=== PATIENT | male | born 1990 | race Caucasian/White ===

== ENCOUNTER 2016-10-06 20:43 | Emergency (ER) | payer SELFPAY ==
[~2016-10-06] VITALS: Ht 172.7 cm; Wt 91.0 kg
[2016-10-07 00:01] VITALS: BP 126/70
[2016-10-07] MEDS ORDERED: LORAZEPAM 2MG/ML CPJ IM ONE (00:15)
[2016-10-07] MEDS ORDERED: ZIPRASIDONE MESYLATE 20MG/VIAL IM ONE (00:15)
[2016-10-07 01:02] LABS: *AMPHETAMINES SCREEN URINE NEGATIVE (NEGATIVE); *BARBITURATES SCREEN URINE NEGATIVE (NEGATIVE); *BENZODIAZEPINES SCREEN URINE PRESUMTIVE POSITIVE (NEGATIVE); *COCAINE SCREEN URINE NEGATIVE (NEGATIVE); CANNABINOID URINE SCREEN NEGATIVE (NEGATIVE); ECSTASY MDMA SCREEN URINE CONF.TEST INDICATED (NEGATIVE); METHADONE URINE SCREEN NEGATIVE (NEGATIVE); OPIATES URINE SCREEN NEGATIVE (NEGATIVE); PHENCYCLIDINE URINE SCREEN NEGATIVE (NEGATIVE)
== END 2016-10-07 01:14 | disposition home or self-care (01) ==
LOC: ER 23:04
DX: T50.991A Poisoning by other drugs, medicaments and biological substances, accidental (unintentional), initial encounter (principal); F22 Delusional disorders; F23 Brief psychotic disorder; Y92.89 Other specified places as the place of occurrence of the external cause
CPT/HCPCS: 80305; 96372; 99284; J2060; J3486; Z7610